=== PATIENT | male | born 1970 | race Caucasian/White ===

== ENCOUNTER → 2016-07-03 | Outpatient (CLI) | payer BC ==
[~2016-07-03] MED LIST: FLUT0.15; LEVO-366 PO; TAMS0.4C38 PO
[2016-07-03 11:55] LABS: BASO % 0.3 %; BASO ABS # 0.04 K/uL (0-0.2); COMPLETE YES; HEMATOCRIT 44.7 % (42-52); IG% 0.2 %; LYMPH ABS # 2.13 K/uL (1.2-3.4); MEAN CELL VOLUME 85.8 fL (80-100); MEAN CORPUSCULAR HEMOGLOBIN 30.5 pg (25-34); MEAN CORPUSCULAR HGB CONC 35.6 g/dl (32-36); MEAN PLATELET VOLUME 9.8 fL (7.4-10.4); MONO % 6.5 %; PLATELET COUNT 250 K/uL (130-400); RED BLOOD COUNT 5.21 M/uL (4.7-6.1); WHITE BLOOD COUNT 12.54 K/uL (4.8-10.8)
[2016-07-03 12:05] LABS: PARTIAL THROMBOPLASTIN RATIO 1.1; PROTHROMBIN TIME (PATIENT) 10.2 SECONDS (9.0-12.0)
[2016-07-03 12:23] LABS: POTASSIUM 4.2 mmol/L (3.5-5.1)
== END | disposition home or self-care (01) ==
LOC: C.LAB 11:07
DX: Z01.818 Encounter for other preprocedural examination (principal); R06.83 Snoring

== ENCOUNTER → 2016-07-07 | Day surgery (SDC) | payer BC ==
[2016-07-03 09:27] VITALS: Ht 193 cm; Wt 90.9 kg
[~2016-07-07] VITALS: Ht 193 cm; Wt 90.9 kg
[~2016-07-07] MED LIST changes: +CEFAZOLIN 2000 MG/60 ML D5W IV SCH; +LACTATED RINGER'S 1000ML 1,000 ML IV SCH; +OXYMETAZOLINE HCL 0.05% NA SPR 15 ML BTL SCH
== END | disposition home or self-care (01) ==
LOC: EDSTATUS 08:45 → C.PAT 10:34
DX: J34.2 Deviated nasal septum (principal)

== ENCOUNTER → 2016-11-09 | Outpatient (CLI) | payer BC ==
[~2016-11-09] MED LIST changes: -CEFAZOLIN 2000 MG/60 ML D5W IV SCH; -LACTATED RINGER'S 1000ML 1,000 ML IV SCH; -OXYMETAZOLINE HCL 0.05% NA SPR 15 ML BTL SCH
[2016-11-09 12:02] LABS: BASO % 0.8 %; BASO ABS # 0.05 K/uL (0-0.2); COMPLETE YES; EOS % 5.8 %; HEMATOCRIT 46.2 % (42-52); IG% 0.2 %; LYMPH % 35.6 %; LYMPH ABS # 2.19 K/uL (1.2-3.4); MEAN CORPUSCULAR HEMOGLOBIN 29.8 pg (25-34); MEAN CORPUSCULAR HGB CONC 34.6 g/dl (32-36); MEAN PLATELET VOLUME 9.9 fL (7.4-10.4); MONO % 9.6 %; PLATELET COUNT 278 K/uL (130-400); RED BLOOD COUNT 5.37 M/uL (4.7-6.1); WHITE BLOOD COUNT 6.16 K/uL (4.8-10.8)
[2016-11-09 12:14] LABS: POTASSIUM 4.2 mmol/L (3.5-5.1)
[2016-11-09 12:21] LABS: PARTIAL THROMBOPLASTIN RATIO 1.1; PROTHROMBIN TIME (PATIENT) 10.5 SECONDS (9.0-12.0)
== END | disposition home or self-care (01) ==
LOC: C.LAB 10:30
DX: Z01.818 Encounter for other preprocedural examination (principal)

== ENCOUNTER → 2016-11-13 | Day surgery (SDC) | payer BC ==
[2016-11-09 13:51] VITALS: Ht 193 cm; Wt 90.9 kg
[~2016-11-13] VITALS: Ht 193 cm; Wt 90.9 kg
[~2016-11-13] MED LIST changes: +ATROPINE SULFATE 0.1 MG/ML 5ML SYR IV PRN; +CEFAZOLIN 2000 MG/60 ML D5W IV SCH; +DEXAMETHASONE SOD INJ 4 MG/ML VIAL ONE; +EpINEphrine INJ 1MG/ML AMP 1 MG/ML AMP ONE; +FENTANYL CITRATE INJ 50 MCG/1 ML 2 ML VIAL IV PRN; +FENTANYL CITRATE INJ 50 MCG/1 ML 2 ML VIAL ONE; +GLYCOPYRROLATE INJ 0.2 MG/ML VIAL ONE; +HYDROCODONE/ACETAMOPHEN 5/325MG TAB PO PRN; +KETOROLAC TROMETHAMINE 30 MG/ML VIAL IV. PRN; +LABETALOL HCL IV 5 MG/ML 20ML IV PRN; +LACTATED RINGER'S 1000ML 1,000 ML IV SCH; +LIDOCAINE 4% MPF SOAK 5 ML = 1 DOSE TOP ONE; +LIDOCAINE HCL 2% 2 ML VIAL (20MG/ML) ONE; +LIDOCAINE/EPINEPHRINE 1% INJ 50 ML VIAL ONE; +MIDAZOLAM HCL 1 MG/ML 2ML VIAL ONE; +NEOSTIGMINE METHYLSULFATE 5 MG/5 ML SYR ONE; +ONDANSETRON INJ 2 MG/ML 2 ML VIAL IV PRN; +ONDANSETRON INJ 2 MG/ML 2 ML VIAL ONE; +OXYMETAZOLINE HCL 0.05% NA SPR 15 ML BTL PRN; +OXYMETAZOLINE HCL 0.05% NA SPR 15 ML BTL SCH; +PROPOFOL IV EMULSION 10 MG/ML 20 ML VIAL IV ONE; +ROCURONIUM BROMIDE 10 MG/ML 5 ML VIAL ONE
--- NOTE | 2016-11-13 11:19 | History & Physical Bridge - [place] ---
H&P Re-Evaluation Bridge Note: I have examined the patient, reviewed the History & Physical and in the interval since the performance of the History & Physical I have noted the following changes of clinical significance: No changes noted
--- NOTE | 2016-11-13 12:21 | [facility] Operative Report ---
Operative Report Operative Date November 13, 2016. Pre-Operative Diagnosis Acquired Deviated Septum Post-Operative Diagnosis Same Procedure(s) Performed Septoplasty And Bilateral Inferior Turbinate Outfracture And Turbinoplasty Surgeon Dr. Mckeon Delivery Room Clerk Surgeon(s) None Estimated Blood Loss 10 ML Findings 1. SEVERE R DNS 2. L>R ITH Specimens None I attest to the content of the Intraoperative Record and any orders documented therein. Any exceptions are noted below.
--- NOTE | 2016-11-13 12:23 | Discharge Instructions ---
Discharge Instructions Date of Service November 13, 2016. Admission Reason for Admission: Acquired Deviated Nasal Septum Discharge Discharge Diagnosis / Problem: SAME Discharge Goals Goal(s): Therapeutic intervention Activity Recommendations Activity Limitations: as noted below 1. LIGHT ACTIVITY AND NO NOSE BLOWING FOR 2WEEKS 2. NO DRIVING WHILE ON [place] 3. NO RUNNING FOR 2WEEKS; NO LIFTING> OR = 15LBS FOR 2WEEKS . Current Hospital Diet Patient's current hospital diet: Discharge Diet Recommended Diet: Regular Diet Procedures Procedures Performed: Septoplasty And Bilateral Inferior Turbinate Outfracture And Turbinoplasty Pending Studies Studies pending at discharge: no Medical Emergencies . Who to Call and When: Medical Emergencies: If at any time you feel your situation is an emergency, please call 911 immediately. . Non-Emergent Contact Non-Emergency issues call your: Surgeon . . "Provider Documentation" section prepared by Nathan Mckeon. . VTE Core Measure Inpt VTE Proph given/why not?: SCD's
[2016-11-13 13:10] VITALS: TEMP 36.5
--- NOTE | 2016-11-13 13:28 | Anesthesia Progress Nt - [facility] ---
Anesthesia Post Op Note Date & Time November 13, 2016 at 13:27 Vital Signs Pain Intensity: 4.0 Vital Signs Past 12 Hours Date Time Temp Pulse Resp B/P Pulse Ox O2 Delivery O2 Flow Rate FiO2 11/13/16 13:10 36.5 43 16 134/84 98 Room Air 11/13/16 13:01 46 7 94 11/13/16 13:01 46 7 11/13/16 13:01 36.7 95 Room Air 11/13/16 13:01 46 7 94 11/13/16 13:01 46 7 11/13/16 13:00 120/85 11/13/16 13:00 120/85 11/13/16 12:56 46 12 129/83 96 11/13/16 12:56 46 12 129/83 96 11/13/16 12:56 45 12 11/13/16 12:56 45 12 11/13/16 12:51 43 10 11/13/16 12:51 43 10 11/13/16 12:51 40 10 99 11/13/16 12:51 40 10 99 11/13/16 12:50 41 13 131/76 98 11/13/16 12:50 41 13 11/13/16 12:46 130/74 11/13/16 12:45 43 14 98 11/13/16 12:45 43 14 11/13/16 12:41 130/85 11/13/16 12:40 41 10 11/13/16 12:40 41 10 98 11/13/16 12:35 54 13 137/88 98 11/13/16 12:35 36.4 43 16 137/88 98 Mask 6 11/13/16 12:35 44 13 11/13/16 09:00 36.9 50 20 125/74 96 Room Air Notes Mental Status: alert / awake / arousable, participated in evaluation Pt Amnestic to Procedure: Yes Nausea / Vomiting: adequately controlled Pain: adequately controlled Airway Patency, RR, SpO2: stable & adequate BP & HR: stable & adequate Hydration State: stable & adequate Anesthetic Complications: no major complications apparent
[2016-11-13 13:38] VITALS: BP 133/79; PULSE 42; O2SAT 98
--- NOTE | 2016-11-13 13:57 | OPERATIVE REPORT ---
DATE OF OPERATION: 11/13/2016 PREOPERATIVE DIAGNOSES: 1. Severe right nasal septal deviation. 2. Left greater than right inferior turbinate hypertrophy. POSTOPERATIVE DIAGNOSES: 1. Severe right nasal septal deviation. 2. Left greater than right inferior turbinate hypertrophy. PROCEDURES: 1. Septoplasty. 2. Bilateral inferior turbinate outfracture and turbinoplasty. SURGEON: Dr. Nathan Mckeon. ANESTHESIA: General endotracheal. ESTIMATED BLOOD LOSS: 10 mL. FINDINGS: 1. Severe right septal deviation with both cartilaginous and bony deviation. 2. Left greater than right inferior turbinate hypertrophy. SPECIMENS: None. COMPLICATIONS: None. INDICATIONS FOR THE PROCEDURE: The patient is a 46-year-old male with a history of right nasal airway obstruction, which has been unresponsive to maximum medical therapy. On physical examination, he was found to have severe right-sided septal deviation with near 100% obstruction of the right side of his nasal cavity with his septal deviation. He also had left greater than right inferior turbinate hypertrophy. He presents for the above-mentioned procedures on an outpatient elective basis. DESCRIPTION OF PROCEDURE: After informed consent had been obtained from the patient, the patient was wheeled to the operating room and placed on the operating table in the supine position. Monitors were placed. After induction of general endotracheal anesthesia, the patient was prepped in usual fashion for septoplasty. The nasal septum was injected with 1% lidocaine with 1:100,000 epinephrine. Lidocaine and epinephrine pledgets were then placed in the bilateral nasal cavities and pressure applied. Curved iris scissors were used to trim the patient's nasal vibrissae. After allowing adequate time for anesthesia and decongestion, the pledgets were removed and a #15 scalpel was used to make a left hemitransfixion incision, through which the left-sided mucoperichondrial and mucoperiosteal flaps were elevated. A #15 scalpel was then used to incise the quadrangular cartilage with care to preserve a 1.5-cm dorsal and caudal strut and the right-sided mucoperichondrial and mucoperiosteal flap was elevated through this cartilaginous incision. A Tamar silver knife was then used to remove the deviated portion of the quadrangular cartilage. An osteotome, mallet, and Rhett forceps were then used to remove the bony septal spur, which was impinging on the airway posteriorly to the right hand side. Septal cavity was then suctioned. The septum was found to be relatively midline. There was an anterior superior bony deviation, but care was taken to preserve a 1.5-cm dorsal strut, therefore not all of this deviated bone could be removed. Septal cavity was suctioned. The left hemitransfixion incision was closed with several simple interrupted 4-0 chromic sutures. A 4-0 plain gut suture and a Nehemiah needle was then used to perform a quilting stitch of the mucoperichondrial and mucoperiosteal flaps bilaterally to help prevent septal hematoma. A Proctor elevator was then used to infracture and subsequently outfracture the inferior turbinates bilaterally. The inferior turbinates were injected with 1% lidocaine with 1:100,000 epinephrine. A 2.0-mm turbinate blade using powered instrumentation was then used to perform bilateral inferior turbinoplasties in a submucosal fashion. The nasal cavities and nasopharynx were then suctioned. An orogastric tube was placed and the stomach was suctioned free of air and stomach contents. This marked the end of the case. The patient tolerated the procedure well. There were no apparent complications. All the instrumentation was removed from the patient. The patient was extubated and transferred to recovery room in stable condition. I attest to the content of the Intraoperative Record and any orders documented therein. Any exceptio ns are noted below.
== END | disposition home or self-care (01) ==
LOC: X.SURG 08:52
DX: J34.2 Deviated nasal septum (principal); J34.3 Hypertrophy of nasal turbinates; G47.19 Other hypersomnia; E78.00 Pure hypercholesterolemia, unspecified; G47.30 Sleep apnea, unspecified; Z80.8 Family history of malignant neoplasm of other organs or systems; Z90.89 Acquired absence of other organs

== ENCOUNTER 2017-03-25 08:36 | Emergency (ER) | payer BC ==
[~2017-03-25] VITALS: Ht 193 cm; Wt 86.5 kg
[2017-03-25 08:40] VITALS: Ht 193 cm; Wt 86.5 kg
[2017-03-25] MEDS ORDERED: FLUT0.15 (09:31)
[2017-03-25 09:34] LABS: URINE APPEARANCE CLEAR (CLEAR); URINE BILIRUBIN NEG (NEG); URINE COLOR YELLOW; URINE NITRITE NEG (NEG); URINE PH 7.5 (4.5-7.5); URINE SPECIFIC GRAVITY 1.006 (1.000-1.030); UROBILINOGEN NEG (NEG); ZZUR CULT IF INDIC CLEAN CATCH NO
[2017-03-25 09:39] LABS: MANUAL MICROSCOPIC REQUIRED? YES; REVIEW REQ? NO
[2017-03-25 09:51] LABS: URINE BACTERIA NEG (NEG); URINE RBC 0-4 /hpf (0-4); URINE WBC 0 /hpf (0-5)
[2017-03-25] MEDS ORDERED: LEVOFLOXACIN 250 MG TAB PO ONE (11:30)
[2017-03-25] MEDS ORDERED: TAMS0.4C38 PO (11:33)
[2017-03-25] MEDS ORDERED: LEVO-366 PO (11:33)
[2017-03-25 11:49] VITALS: BP 139/89; PULSE 48; TEMP 36.9; O2SAT 97
--- NOTE | 2017-03-25 14:45 | EMERGENCY ROOM VISIT NOTE ---
History Report prepared by Josee: Brandy Urias Under the Supervision of: Dr. Santosh Zelaya D.O. First contact with patient: 08:43 Chief Complaint: URINARY SYMPTOMS Stated Complaint: DIFFICULTY URINATING Nursing Triage Summary: triage note; pt reports difficulty urinating since last night. History of Present Illness The patient is a 46 year old male who presents to the Emergency Room with complaints of persistent difficulty urinating since last night. He reports he has to wait "a long time" when he attempts to urinate, but only produces a small amount of urine. He tried drinking several glasses of water, but again only experienced minimal urinary output. He states he still feels the urge to urinate this morning but denies any hematuria or dysuria. The patient has never experienced a UTI before. He admits to increased stress with his marriage recently and states he has lost 10 pounds in the past month. He reports his is leaving for a trip this morning and they have had sexual intercourse approximately every day for the past 3 weeks. He does note yesterday he drank 1 beer, then experienced difficulty maintaining an erection later that night, which has never happened to him before. Pt denies abdominal pain, nausea, vomiting or diarrhea. Source of History: patient Onset: last night Position: other (urinary system) Timing: other (persistent) Modifying Factors (Worsening): drinking (water) Associated Symptoms: No nausea, No vomiting, No abdominal pain, No diarrhea Review of Systems See HPI for pertinent positives & negatives. A total of 10 systems reviewed and were otherwise negative. Past Medical & Surgical Medical Problems: (1) Seasonal allergies Social History Smoking Status: Never Smoker Smokeless Tobacco Use: No Alcohol Use: occasionally Drug Use: none Marital Status: Housing Status: lives with family Occupation Status: employed Current/Historical Medications Scheduled Levofloxacin (Levaquin), 500 MG PO DAILY Tamsulosin Hcl (Flomax), 0.4 MG PO DAILY Miscellaneous Medications Fluticasone Propionate (Nasal) (Flonase Allergy Relief) Allergies Coded Allergies: NO KNOWN DRUG ALLERGIES (Verified Allergy, Unknown, ., 03/25/17) Physical Exam Vital Signs Date Time Temp Pulse Resp B/P (MAP) Pulse Ox O2 Delivery O2 Flow Rate FiO2 03/25/17 11:49 36.9 48 18 139/89 97 03/25/17 11:27 48 18 139/89 97 03/25/17 08:40 36.9 53 18 143/91 98 Room Air Physical Exam GENERAL: Patient is alert, pacing in the room, anxious appearing, well nourished , non-toxic EYE EXAM: normal conjunctiva, PERRL and EOM's grossly intact OROPHARYNX: no exudate, no erythema, lips, buccal mucosa, and tongue normal and mucous membranes are moist LUNGS: Clear to auscultation. Normal chest wall mechanics HEART: no murmurs, S1 normal and S2 normal ABDOMEN: abdomen soft, non-tender, normo-active bowel sounds, no masses, no rebound or guarding. BACK: Back is symmetrical on inspection and there is no deformity, no midline tenderness, no CVA tenderness. : Normal external circumcised male genitalia. Testicles are nontender. No blood at urethral meatus. SKIN: no rashes and no bruising UPPER EXTREMITIES: upper extremities are grossly normal. LOWER EXTREMITIES: No pitting edema. NEURO EXAM: Normal sensorium, cranial nerves II-XII grossly intact, normal speech, no gross weakness of arms, no gross weakness of legs. Gross sensation intact. Medical Decision & Procedures Laboratory Results Test 03/25/17 00:00 Urine Color YELLOW Urine Appearance CLEAR (CLEAR) Urine pH 7.5 (4.5-7.5) Urine Specific [place] 1.006 (1.000-1.030) Urine Protein NEG (NEG) Urine Glucose (UA) NEG (NEG) Urine Ketones NEG (NEG) Urine Occult Blood NEG (NEG) Urine Nitrite NEG (NEG) Urine Bilirubin NEG (NEG) Urine Urobilinogen NEG (NEG) Urine Leukocyte Esterase NEG (NEG) Urine WBC (Auto) /hpf (0-5) Urine RBC (Auto) /hpf (0-4) Urine Hyaline Casts (Auto) /lpf (0-5) Urine Epithelial Cells (Auto) /lpf (0-5) Urine Bacteria (Auto) (NEG) Urine RBC 0-4 /hpf (0-4) Urine WBC 0 /hpf (0-5) Urine Epithelial Cells 0-5 /lpf (0-5) Urine Bacteria NEG (NEG) Laboratory results per my review. Medications Administered Medications (Trade) Dose Ordered Sig/Divya Route Start Time Stop Time Status Last Admin Dose Admin Levofloxacin (Levaquin Tab) 500 mg NOW ONCE PO 9/24/17 11:30 03/25/17 11:31 DC 03/25/17 11:44 500 MG ED Course ED COURSE: Vital signs were reviewed and showed the patient is hypertensive and bradycardic. The patients medical record was reviewed The above diagnostic studies were performed and reviewed. ED treatments and interventions as stated above. 0849: The patient was evaluated in room B10. A complete history and physical examination was performed. 0855: A bedside ultrasound shows residual fluid within the bladder. 1002: I reevaluated the patient. He is resting comfortably. I discussed my recommendation we catheterize him and he verbalized complete understanding and agreement. 1125: Upon reevaluation, the patient is feeling well. Less than 200 mL of urine was removed via Schroeder catheter. I discussed my findings with the patient and he understands and agrees with the treatment plan. 1130: Levaquin 500 mg PO. Based on the patients age, coexisting illnesses, exam and lab findings the decision to treat as an outpatient was made. The patient remained stable while under my care. The patient appeared well at the time of discharge. Medical Decision The differential diagnoses considered include STD, UTI, urethral trauma, BPH and renal stone. Patient is a 46-year-old male that presents to ER for urinary frequency/ urgency. Patient denies any dysuria. He notes he has been sexually active every day for the past 3. Hematuria. No fevers. Sexually active with one partner/. UA shows no infection. Bladder scan shows postvoid less than 40mls. Bedside ultrasound showed that this is incorrect. Schroeder was placed to confirm and just under 200 MLS was removed. Patient still had a sense/urgency. Schroeder was removed as there is less than 250 MLS and bladder. He is discharged with Levaquin in case this is infectious and Flomax for possible BPH. Discussed with Pt concerning signs and symptoms to watch out for. Pt was instructed to follow up with their PCP and discussed with the patient their option to return to the ED at anytime for persistent or worsening symptoms. The appropriate anticipatory guidance and out-patient management, including indications for return to the emergency department, were explained at length to the patient and understood. Medication Reconcilliation Current Medication List: was personally reviewed by me Blood Pressure Screening Patient's blood pressure: Elevated blood pressure Blood pressure disposition: Elevated BP felt to be situational Impression Primary Impression: Symptoms of urinary tract infection Scribe Attestation The scribe's documentation has been prepared under my direction and personally reviewed by me in its entirety. I confirm that the note above accurately reflects all work, treatment, procedures, and medical decision making performed by me. Departure Information Dispostion Home / Self-Care Prescriptions Tamsulosin Hcl (FLOMAX) 0.4 Mg Cap 0.4 MG PO DAILY, #10 CAP Prov: Santosh Zelaya, DO 03/25/17 Levofloxacin (Levaquin) 500 Mg Tab 500 MG PO DAILY for 5 Days, #5 TAB Prov: Santosh Zelaya, DO 03/25/17 Referrals Osiel Katz DO (PCP) Patient Instructions ED Retention Urinary Male, ED UTI Cystitis Female, My [facility] Additional Instructions Please follow up with your primary care doctor or if you are a student, [facility] with in the next 24 hours. Any worsening of your symptoms, please return to the ED immediately. This includes any fevers greater than 100.4, worsening pain, chest pain, shortness breath, persistent nausea, vomiting, unable to eat or drink, or any other concerning signs or symptoms from your standpoint. Please follow up with your primary care doctor as soon as possible and urology within the next 1-2 weeks as listed below. Please take medications as prescribed.
== END 2017-03-25 11:51 | disposition home or self-care (01) ==
LOC: C.EDB 08:37
DX: R30.0 Dysuria (principal); R35.0 Frequency of micturition; R39.15 Urgency of urination